=== PATIENT | female | born 1985 | race African-American/Black ===

== ENCOUNTER 2020-11-16 12:43 | Emergency (ER) | payer BC ==
[2020-11-16 12:50] VITALS: BMI 26.6
[2020-11-16 15:17] LABS: EPI CELLS 15 /uL (0-25.1); HYALINE CASTS 1 /uL (0-3.1); PH,URINE 6.5 (5.0-8.0); URINE APPEARANCE CLEAR; URINE BACTERIA 413 /uL (0-1359); URINE BILIRUBIN NEGATIVE (NEGATIVE); URINE COLOR ORANGE; URINE GLUCOSE (UA) NEGATIVE (NEGATIVE); URINE KETONE NEGATIVE (NEGATIVE); URINE LEUK ESTERASE NEGATIVE (NEGATIVE); URINE NITRITE NEGATIVE (NEGATIVE); URINE PROTEIN 1+ (NEGATIVE); URINE RBC 132 /uL (0-23.9); URINE UROBILINOGEN 0.2 mg/dL (0.2-1.0); URINE WBC 17 /uL (0-25.8)
[2020-11-16] MEDS ORDERED: SODIUM CHLORIDE 1,000 ML IV STA (16:53)
[2020-11-16] MEDS ORDERED: ACETAMINOPHEN 1000 MG/100 ML VIAL (NON FORMULARY) IVPB ONE (16:53)
[2020-11-16] MEDS ORDERED: ACETAMINOPHEN INJECTION 100 ML IVPB ONE (17:30)
[2020-11-16 17:53] LABS: BASO % 0.6 % (0-2.0); EOS % 0.9 % (0-4.5); HEMATOCRIT 35.7 % (32.4-45.2); MCH 32.4 pg (25.7-33.7); MCHC 33.5 g/dl (32.0-36.0); MEAN CELL VOLUME 96.8 fl (80-96); MEAN PLT VOLUME 8.3 fl (7.5-11.1); MONO % 6.7 % (3.8-10.2); NEUT % 67.8 % (42.8-82.8); PLATELET COUNT 269 K/MM3 (134-434); RBC 3.69 M/mm3 (3.60-5.2); RDW 12.9 % (11.6-15.6); WHITE BLOOD COUNT 12.4 K/mm3 (4.0-10.0)
[2020-11-16 17:55] LABS: INR 1.06 (0.83-1.09)
[2020-11-16 18:06] LABS: POTASSIUM 3.9 mmol/L (3.5-5.1)
[2020-11-16 18:08] LABS: ALBUMIN 3.7 g/dl (3.4-5.0); BLOOD UREA NITROGEN 6.9 mg/dL (7-18); CALCIUM 9.1 mg/dL (8.5-10.1)
[2020-11-16 18:11] LABS: CREATININE 0.7 mg/dL (0.55-1.3)
[2020-11-16 18:13] LABS: BILIRUBIN,TOTAL 0.3 mg/dL (0.2-1)
[2020-11-16] MEDS ORDERED: METHYLERGONOVINE MALEATE 0.2 MG/1 ML AMP IM ONE (18:14)
[2020-11-16 18:34] VITALS: BP 121/76; PULSE 66; TEMP 98.4
== END 2020-11-16 18:51 | disposition home or self-care (01) ==
LOC: JER 12:43
PROC: 3E0333Z Introduction of Anti-inflammatory into Peripheral Vein, Percutaneous Approach (ICD-10-PCS; principal; 2020-11-16)
PROC: 3E023GC Introduction of Other Therapeutic Substance into Muscle, Percutaneous Approach (ICD-10-PCS; 2020-11-16)
PROC: 3E0337Z Introduction of Electrolytic and Water Balance Substance into Peripheral Vein, Percutaneous Approach (ICD-10-PCS; 2020-11-16)
DX: O02.0 Blighted ovum and nonhydatidiform mole (principal)
CPT/HCPCS: 36415; 76817-TC; 80053; 81003; 84702; 85025; 85610; 86850; 86900; 86901; 87086; 99284-25; J0131

== ENCOUNTER 2021-05-13 10:48 | Emergency (ER) | payer BC ==
[2021-05-13 11:25] VITALS: BP 143/79; PULSE 108; TEMP 98.6; BMI 25.1
[2021-05-13 12:20] LABS: BASO % 0.5 % (0-2.0); EOS % 0.4 % (0-4.5); HEMATOCRIT 39.7 % (32.4-45.2); HEMOGLOBIN 13.4 GM/dL (10.7-15.3); LYMPH % 18.6 % (8-40); MCH 31.6 pg (25.7-33.7); MCHC 33.8 g/dl (32.0-36.0); MEAN CELL VOLUME 93.4 fl (80-96); MEAN PLT VOLUME 7.7 fl (7.5-11.1); MONO % 8.7 % (3.8-10.2); NEUT % 71.8 % (42.8-82.8); PLATELET COUNT 304 10^3/uL (134-434); RBC 4.26 M/mm3 (3.60-5.2); RDW 13.9 % (11.6-15.6); WHITE BLOOD COUNT 9.9 K/mm3 (4.0-10.0)
[2021-05-13 12:27] LABS: EPI CELLS 26 /uL (0-25.1); HYALINE CASTS 4 /uL (0-3.1); PH,URINE 5.5 (5.0-8.0); URINE APPEARANCE CLEAR; URINE BACTERIA 442 /uL (0-1359); URINE BILIRUBIN NEGATIVE (NEGATIVE); URINE COLOR YELLOW; URINE GLUCOSE (UA) NEGATIVE (NEGATIVE); URINE KETONE TRACE (NEGATIVE); URINE LEUK ESTERASE TRACE (NEGATIVE); URINE NITRITE NEGATIVE (NEGATIVE); URINE PROTEIN TRACE (NEGATIVE); URINE RBC 7 /uL (0-23.9); URINE WBC 25 /uL (0-25.8)
[2021-05-13 12:45] LABS: ALBUMIN 3.8 g/dl (3.4-5.0); BLOOD UREA NITROGEN 7.9 mg/dL (7-18); CALCIUM 8.8 mg/dL (8.5-10.1)
[2021-05-13 12:50] LABS: BILIRUBIN,TOTAL 0.2 mg/dL (0.2-1); TOT PROT 7.7 g/dl (6.4-8.2)
== END 2021-05-13 15:27 | disposition home or self-care (01) ==
LOC: JER 10:48
DX: O26.851 Spotting complicating pregnancy, first trimester (principal); Z3A.01 Less than 8 weeks gestation of pregnancy
CPT/HCPCS: 36415; 76817-TC; 80053; 81003; 84702; 85025; 87086; 87186; 99284-25